=== PATIENT | female | born 1990 | race Caucasian/White ===

== ENCOUNTER 2020-08-17 01:53 | Inpatient (IN) | payer OTHER ==
[~2020-08-17] VITALS: Ht 162.6 cm; Wt 75.0 kg
[2020-08-17 02:16] VITALS: BP 122/76
[2020-08-17] MEDS ORDERED: NEWBORN KIT ONE (03:26)
[2020-08-17] MEDS ORDERED: OXYTOCIN 30U/ 0.9% NaCL 500ML 500 ML ONE ×2 (03:26→19:16)
[2020-08-17] MEDS ORDERED: LIDOCAINE 1%, 20ML ONE (03:26)
[2020-08-17] MEDS ORDERED: MISOPROSTOL 200 MCG TABLET ONE (03:26)
[2020-08-17] MEDS ORDERED: CALCIUM CARBONATE 500 MG TAB.CHEW PO PRN (03:30)
[2020-08-17] MEDS ORDERED: TERBUTALINE 1 MG/ML, 1ML SQ PRN (03:30)
[2020-08-17] MEDS ORDERED: OXYTOCIN 30U/ 0.9% NaCL 500ML 500 ML IV PRN (03:30)
[2020-08-17] MEDS ORDERED: PENICILLIN GK 5,000,000 UNITS in DEXTROSE 5% 100 ML IVPB ONE (03:30)
[2020-08-17] MEDS ORDERED: TERBUTALINE 1 MG/ML, 1ML IVPush PRN (03:30)
[2020-08-17] MEDS ORDERED: D5%-LACTATED RINGERS 1,000 ML IV SCH (03:30)
[2020-08-17] MEDS ORDERED: OXYTOCIN 30U/ 0.9% NaCL 500ML 500 ML IV ONE (03:30)
[2020-08-17] MEDS ORDERED: METOCLOPRAMIDE 5 MG/ML, 2ML IVPush PRN (03:30)
[2020-08-17] MEDS ORDERED: FENTANYL PF 100 MCG/2ML IV PRN (03:30)
[2020-08-17] MEDS ORDERED: SODIUM CITRATE/CITRIC ACID 30 ML UDC PO PRN (03:30)
[2020-08-17] MEDS ORDERED: FENTANYL PF 100 MCG/2ML IVPush PRN (03:30)
[2020-08-17] MEDS ORDERED: FENTANYL PF 100 MCG/2ML ONE (03:37)
[2020-08-17] MEDS: LACTATED RINGERS 1,000 ML IV SCH ×2 (03:43→15:08)
[2020-08-17 03:49] LABS: BASOPHILS % (AUTO) 1 % (0-1); EOSINOPHILS % (AUTO) 0 % (1-7); LYMPHOCYTES % (AUTO) 12 % (22-44); MEAN CORPUSCULAR HEMOGLOBIN 30.2 pg (27.0-34.8); MEAN CORPUSCULAR HGB CONC 34.5 g/dL (32.4-35.8); MEAN PLATELET VOLUME 7.2 fL (7.4-10.4); MONOCYTES % (AUTO) 7 % (2-9); NEUTROPHILS % (AUTO) 80 % (42-75); PLATELET COUNT 337 x10^3/uL (130-400); RED BLOOD COUNT 4.64 x10^6/uL (3.82-5.3)
[2020-08-17 04:19] LABS: MD SCAN
[2020-08-17] MEDS ORDERED: FENTANYL/BUPIV./NS/PF 250 ML EPIDCONT ONE (04:27)
[2020-08-17] MEDS ORDERED: BUPIVACAINE 0.25% ONE (04:39)
[2020-08-17] MEDS ORDERED: EPHEDRINE 50 MG/ML, 1ML IVPush PRN (05:00)
[2020-08-17] MEDS ORDERED: FENTANYL/BUPIV./NS/PF 250 ML EPIDCONT SCH ×2 (05:00)
[2020-08-17] MEDS ORDERED: NALOXONE 0.4 MG/ML, 1ML IVPush PRN ×2 (05:00)
[2020-08-17] MEDS ORDERED: LACTATED RINGERS 1,000 ML IV SCH ×2 (05:00)
[2020-08-17] MEDS ORDERED: LACTATED RINGERS 1,000 ML IVBOLUS PRN ×2 (05:00)
[2020-08-17] MEDS ORDERED: ONDANSETRON 2MG/ML, 2ML ONE ×2 (05:19→11:58)
[2020-08-17] MEDS: ONDANSETRON 2MG/ML, 2ML IVPush PRN ×2 (05:20→11:59)
[2020-08-17] MEDS: PENICILLIN GK 2,500,000 UNITS in DEXTROSE 5% 100 ML IVPB SCH ×3 (07:48→15:32)
[2020-08-17] MEDS ORDERED: METOCLOPRAMIDE 5 MG/ML, 2ML ONE (12:05)
[2020-08-17] MEDS ORDERED: IBUPROFEN 600 MG TABLET ONE (18:14)
[2020-08-17] MEDS: IBUPROFEN 600 MG TABLET PO PRN (18:15)
[2020-08-17] MEDS ORDERED: OXYcodone/APAP 5/325MG TABLET PO PRN ×2 (18:30)
[2020-08-17] MEDS ORDERED: MISOPROSTOL 200 MCG TABLET PR PRN (18:30)
[2020-08-17] MEDS ORDERED: CARBOPROST TROMETHAMINE 250 MCG/ML, 1ML IM PRN (18:30)
[2020-08-17] MEDS ORDERED: METHYLERGONOVINE 0.2 MG/ML IM PRN (18:30)
[2020-08-17] MEDS ORDERED: ACETAMINOPHEN 325 MG TABLET PO PRN ×2 (18:30)
[2020-08-17] MEDS ORDERED: SIMETHICONE 80 MG CHEW TAB PO PRN (18:30)
[2020-08-17] MEDS: OXYTOCIN 30U/ 0.9% NaCL 500ML 500 ML IV SCH (19:18)
[2020-08-17 20:35] VITALS: BP 106/59
[2020-08-18] MEDS: IBUPROFEN 600 MG TABLET PO PRN ×3 (00:58→14:34)
[2020-08-18] MEDS: DOCUSATE 100 MG CAPSULE PO PRN ×2 (00:58→08:28)
[2020-08-18 01:00] VITALS: BP 105/69
[2020-08-18 02:06] LABS: BASOPHILS % (AUTO) 1 % (0-1); EOSINOPHILS % (AUTO) 0 % (1-7); LYMPHOCYTES % (AUTO) 12 % (22-44); MEAN CORPUSCULAR HEMOGLOBIN 29.8 pg (27.0-34.8); MEAN CORPUSCULAR HGB CONC 33.8 g/dL (32.4-35.8); MEAN PLATELET VOLUME 7.4 fL (7.4-10.4); MONOCYTES % (AUTO) 10 % (2-9); NEUTROPHILS % (AUTO) 77 % (42-75); PLATELET COUNT 290 x10^3/uL (130-400); RED BLOOD COUNT 3.99 x10^6/uL (3.82-5.3); RED CELL DISTRIBUTION WIDTH 13.4 % (9.6-15.2)
[2020-08-18 03:05] LABS: MD SCAN
[2020-08-18 04:00] VITALS: BP 101/68
[2020-08-18] MEDS: OXYTOCIN 30U/ 0.9% NaCL 500ML 500 ML IV SCH ×2 (04:30→14:30)
[2020-08-18 08:15] VITALS: BP 110/63
[2020-08-18] MEDS ORDERED: PRENATAL VIT/IRON/FA 1 EACH TABLET PO SCH (09:00)
[2020-08-18 13:00] VITALS: BP 102/72
[2020-08-18 16:30] VITALS: BP 100/70
== END 2020-08-18 19:40 | disposition home or self-care (01) | DRG 807 ==
LOC: LDOP 01:53 → LDIP 03:37 → 2NW 20:15
PROVIDERS: ADMIT Obstetrics & Gynecology Maternal & Fetal Medicine; ATTEND Obstetrics & Gynecology Maternal & Fetal Medicine
PROC: 10E0XZZ Delivery of Products of Conception, External Approach (ICD-10-PCS; principal; 2020-08-17)
PROC: 0KQM0ZZ Repair Perineum Muscle, Open Approach (ICD-10-PCS; 2020-08-17)
PROC: 3E0R3BZ Introduction of Anesthetic Agent into Spinal Canal, Percutaneous Approach (ICD-10-PCS; 2020-08-17)
PROC: 00HU33Z Insertion of Infusion Device into Spinal Canal, Percutaneous Approach (ICD-10-PCS; 2020-08-17)
DX: O48.0 Post-term pregnancy (principal); Z37.0 Single live birth; O70.1 Second degree perineal laceration during delivery; O99.824 Streptococcus B carrier state complicating childbirth; Z3A.41 41 weeks gestation of pregnancy; Z82.3 Family history of stroke; Z83.3 Family history of diabetes mellitus; Z20.828 Contact with and (suspected) exposure to other viral communicable diseases
CPT/HCPCS: 36415; 85025; 86592; 86850; 86900; 87635; G0378; J2405; J2540; J3010; J2590; J7120